=== PATIENT | female | born 1985 | race Two or more races ===

== ENCOUNTER 2018-11-08 07:30 | Inpatient (IN) | payer OTHER ==
[2018-11-08] MEDS ORDERED: OXYTOCIN 20 UNITS in 0.9% NS 20 UNIT/1,000 ML INFUS.BAG IV ONE (07:43)
[2018-11-08] MEDS ORDERED: AMPICILLIN SODIUM 2 GM VIAL ONE (07:46)
[2018-11-08] MEDS ORDERED: LIDOCAINE HCL 1% PRESERVATIVE FREE - 30ML VIAL ONE (07:50)
[2018-11-08] MEDS ORDERED: DEXTROSE 5%-LACTATED RINGERS 1,000 ML IV SCH (08:15)
[2018-11-08] MEDS ORDERED: AMPICILLIN - 2 GM in SODIUM CHLORIDE 100 ML IVPB ONE (08:15)
[2018-11-08] MEDS ORDERED: ACETAMINOPHEN INJECTION 100 ML IVPB ONE (08:16)
--- NOTE | 2018-11-08 08:32 | HP ---
Past Medical History - Primary Care Physician PCP:: Guillermo Henriquez - Admission Chief Complaint: 32yo P0 with at EGA 36wks came to L&D with second stage of labor and bleeding History of Present Illness: Pt presented with labor at 36wks. Reports painful ctx's and bleeding at 6:30am. Pt presented to L&D with cervical dilation 10cm and pushing. She was noted to have decels in heart rate. Delivered precipitously with signs of placental abruption. Fetus followed for increased risks of Down syndrome. She had a negative cfDNA screen. Suspected IUGR with decrease in growth to 5th %ile and increased S/D ratio of umbilical cord doppler. History Source: Patient, Medical Record Limitations to Obtaining History: No Limitations - Past Medical History PRESSER FIRST: No: Alzheimer's, CVA, Dementia, Migraine, Multiple Sclerosis, Peripheral Neuropathy, Parkinson's, Seizure, Syncope, TIA, Vertigo, Other Cardiovascular: No: AFIB, Aneurysm, Aortic Insufficiency, Aortic Stenosis, CAD, CHF, Deep Vein Thrombosis, HTN, Hyperlipdemia, [place], Mitral Insufficiency, Mitral Stenosis, Murmur, Pulmonary Hypertension, Other Pulmonary: No: Asthma, Bronchitis, Cancer, COPD, O2 Dependent, Pneumonia, Previously Intubated, Pulmonary Embolus, Pulmonary Fibrosis, Sleep Apnea, Other Gastrointestinal: No: Ascites, Cancer, Constipation, Crohn's Disease, Diverticulitis, Diverticulosis, Esophageal Varices, Gastritis, GERD, GI Bleed, Hemorrhoids, Hiatal Hernia, Inflamatory Bowel Disease, Irritable Bowel Disease, Pancreatitis, Peptic Ulcer Disease, Ulcerative Colitis, Other Hepatobiliary: No: Cirrhosis, Cholelithiasis, Cholecystitis, Choledocholithiasis , Hepatitis A, Hepatitis B, Hepatitis C, Other Renal/: No: Renal Failure, Renal Inusuff, BPH, Cancer, Hematuria, Hemodialysis , Neurogenic Bladder, Renal Calculi, UTI, Other Reproductive: No: Ectopic , Endometriosis, Fibroids, PID, Polycystic Ovary Syndrome, Postmenopausal, Other ...: 1 Heme/Onc: No: Anemia, B12 Deficiency, Bleeding Disorder, Cancer, Current Chemotherapy, Current Radiation Therapy, Hemochromatosis, Hypercoaguable State, Myeloproliferative Synd, Sickle Cell Disease, Sickle Cell Trait, Thrombocytopenia, Other Infectious Disease: No: AIDS, C-Diff, Herpes Zoster, HIV, MRSA, STD's, Tuberculosis, VREF, Other Psych: No: Addictions, Anxiety, Bipolar, Depression, Panic, Psychosis, Schizophrenia, Other Musculoskeletal: No: Bursitis, Chronic low back pain, Hemiparesis, Hemiplegia, Osteoarthritis, Paraplegia, Other Rheumatology: No: Fibromyalgia, Gout, Lupus, Rheumatoid Arthritis, Sarcoidosis, Vasculitis, Other ENT: No: Allergic Rhinitis, Sinusitis, Other Endocrine: No: Dallas's Disease, Radha's Disease, Diabetes Insipidus, Diabetes Mellitus, Hyperparathyroidism, Hyperthyroidism, Hypothyroidism, Osteopenia, SIADH, Other Dermatology: No: Basal Cell, Cellulitis, Eczema, Melanoma, Psoriasis, Squamous Cell, Other - Past Surgical History Past Surgical History: Yes: Appendectomy Hx Myomectomy: No Hx Transabdominal Cerclage: No - Smoking History Have you smoked in the past 12 months: No - Alcohol/Substance Use Hx Alcohol Use: No History of Substance Use: reports: None - Social History Usual Living Arrangement: Yes: With Spouse ADL: Independent Occupation: OR nurse History of Recent Travel: No Home Medications - Allergies Allergies/Adverse Reactions: Allergies Allergy/AdvReac Type Severity Reaction Status Date / Time No Known Allergies Allergy Verified 11/08/18 08:03 Family Disease History - Family Disease History Family History: Denies Review of Systems - Review of Systems Constitutional: reports: Other Eyes: reports: No Symptoms HENT: reports: No Symptoms Neck: reports: No Symptoms Cardiovascular: reports: No Symptoms Respiratory: reports: No Symptoms Gastrointestinal: reports: No Symptoms Genitourinary: reports: No Symptoms Breasts: reports: No Symptoms Reported Musculoskeletal: reports: No Symptoms (Pain and bleeding) Integumentary: reports: No Symptoms Neurological: reports: No Symptoms Endocrine: reports: No Symptoms Hematology/Lymphatic: reports: No Symptoms Psychiatric: reports: No Symptoms Pain Intensity: 10 Physical Exam - Maternity Constitutional: Yes: Well Nourished, Severe Distress Eyes: Yes: WNL, Conjunctiva Clear HENT: Yes: WNL, Atraumatic, Normocephalic Neck: Yes: WNL, Supple, Trachea Midline Cardiovascular: Yes: WNL, Regular Rate and Rhythm Lungs: Clear to auscultation, Normal air movement Breast(s): Yes: WNL - Abdominal Exam/OB Number of Fetuses: Single Presentation: Vertex Contractions: Yes - Vaginal Exam/OB Vaginal Bleediing: Yes, Heavy Dilatation (cm): 10 Amniotic Membrane Status: Leaking Amniotic Fluid: Yes: Blood Stained Presentation: Vertex/Position Station: +1 - Physical Exam Musculoskeletal: Yes: WNL Extremities: Yes: WNL Integumentary: Yes: WNL Deep Tendon Reflex Grade: Normal +2 ...Motor Strength: WNL Psychiatric: Yes: WNL, Alert, Oriented Hemorrhage Risk Assessment - Risk Factors Medium Risk Factors: Yes: None High Risk Factors: Yes: Active bleeding on admission Risk Score: 3 Risk Level: High Risk Imaging - Results Ultrasound: Image Reviewed Assessment/Plan 32yo P0 with at EGA 36wks came to L&D with second stage of labor and bleeding, decelerations in heart rate. Placental abruption was suspected Dr. Hameed responded to an emergency call as the only MD on site. Baby boy was delivered over midline episiotomy by Dr. Hameed. Blood clots were noted on delivery. I came in as the placenta was delivering about 4 minutes after the baby. Placenta delivered quickly after the baby, also with blood clots. The midline episiotomy was repaired. The dessert cup machine feeder present for delivery.
[2018-11-08] MEDS ORDERED: ELECTROLYTE-148 SOLN 1,000 ML IV SCH (09:00)
[2018-11-08] MEDS ORDERED: METHYLERGONOVINE MALEATE 0.2 MG/1 ML AMP IM PRN (09:01)
[2018-11-08] MEDS ORDERED: BENZOCAINE 28 GM HEMORRHOIDAL OINTMENT TP PRN (09:01)
[2018-11-08] MEDS ORDERED: BENZOCAINE 20% 57 GM BOTTLE TP PRN (09:01)
[2018-11-08] MEDS ORDERED: BISACODYL 10 MG SUPP.RECT RC PRN (09:01)
[2018-11-08] MEDS ORDERED: WITCH HAZEL 50% (TUCKS) 40 PAD/JAR PAD TP PRN (09:01)
[2018-11-08] MEDS ORDERED: OXYTOCIN 20 UNITS in 0.9% NS 20 UNIT/1,000 ML INFUS.BAG IV SCH (09:15)
[2018-11-08 09:26] VITALS: BMI 27.4
[2018-11-08] MEDS ORDERED: ACETAMINOPHEN 1000 MG/100 ML VIAL (NON FORMULARY) IVPB ONE (10:00)
[2018-11-08 10:31] LABS: BASO % 0.2 % (0-2.0); EOS % 0.2 % (0-4.5); HEMATOCRIT 41.5 % (32.4-45.2); HEMOGLOBIN 14.1 GM/dL (10.7-15.3); LYMPH % 6.8 % (8-40); MCH 32.9 pg (25.7-33.7); MEAN CELL VOLUME 96.8 fl (80-96); MEAN PLT VOLUME 9.3 fl (7.5-11.1); MONO % 10.6 % (3.8-10.2); NEUT % 82.2 % (42.8-82.8); PLATELET COUNT 191 K/MM3 (134-434); RBC 4.29 M/mm3 (3.60-5.2); RDW 13.1 % (11.6-15.6); WHITE BLOOD COUNT 14.7 K/mm3 (4.0-10.0)
[2018-11-08 10:48] LABS: INR 0.86 (0.83-1.09); PROTHROMBIN TIME (PATIENT) 10.1 SEC (9.7-13.0)
[2018-11-08 10:51] LABS: ACTIVATED PTT 28.1 SECONDS (25.2-36.5)
[2018-11-08 10:59] LABS: BLOOD UREA NITROGEN 8.6 mg/dL (7-18); CALCIUM 8.7 mg/dL (8.5-10.1); CREATININE 0.5 mg/dL (0.55-1.3); POTASSIUM 4.3 mmol/L (3.5-5.1)
[2018-11-08] MEDS: PRENATAL VITAMINS W/ FOLIC ACID TABLET (FP) PO SCH (11:20)
[2018-11-08] MEDS: AMPICILLIN - 1 GM in SODIUM CHLORIDE 100 ML IVPB SCH (12:28)
--- NOTE | 2018-11-08 14:59 | PN ---
Delivery - Delivery Vaginal Delivery: No Problems, Spontaneous Type of Anesthesia: Local Episiotomy/Laceration: Midline EBL (cc): 300 Delivery, Single - Stages of Labor Date 1st Stage Initiatied: 11/08/18 Time 1st Stage Initiated: 06:30 Date 2nd Stage Initiated: 11/08/18 Time 2nd Stage Initiated: 07:30 Date of Delivery: 11/08/18 Time of Delivery: 08:10 Date Placenta Delivered: 11/08/18 Time Placenta Delivered: 08:14 Placenta: Yes: Spontaneous, Normal Configuration - Condition of Infant Spot Welder/Raspberry Checker Present: Yes Name: Yudelka Ann Infant Gender: Male Weight: 2.07 kg Position: Left, OA Total Hours ROM (Hrs/Mins): 2 hours and 44 minutes - 1 Minute Total Score: 8 5 Minutes Total Score: 9 - [place] Feeding Plan Initial Plan: Exclusive throughout hospitalization Remarks - Remarks Remarks: Vaginal bleeding due to placental abruption. Delivery by Dr. Hameed who responded to emergency call.
[2018-11-08] MEDS: IBUPROFEN 600 MG TABLET (FP) PO PRN (17:47)
[2018-11-08] MEDS: ACETAMINOPHEN 325 MG TABLET (FP) PO PRN (17:48)
[2018-11-09] MEDS: AMPICILLIN - 1 GM in SODIUM CHLORIDE 100 ML IVPB SCH ×2 (01:53→06:35)
[2018-11-09 08:16] LABS: BASO % 0.5 % (0-2.0); EOS % 0.2 % (0-4.5); HEMATOCRIT 36.8 % (32.4-45.2); HEMOGLOBIN 12.5 GM/dL (10.7-15.3); LYMPH % 15.1 % (8-40); MCH 32.8 pg (25.7-33.7); MEAN CELL VOLUME 96.3 fl (80-96); MONO % 7.9 % (3.8-10.2); NEUT % 76.3 % (42.8-82.8); PLATELET COUNT 177 K/MM3 (134-434); RBC 3.82 M/mm3 (3.60-5.2); RDW 13.3 % (11.6-15.6); WHITE BLOOD COUNT 11.7 K/mm3 (4.0-10.0)
[2018-11-09] MEDS ORDERED: DIPHTH,PERTUSS(ACELL),TET 0.5 ML DISP.SYRIN IM ONE (10:00)
[2018-11-09] MEDS: ACETAMINOPHEN 325 MG TABLET (FP) PO PRN ×2 (11:29→21:58)
[2018-11-09] MEDS: PRENATAL VITAMINS W/ FOLIC ACID TABLET (FP) PO SCH (11:29)
[2018-11-09] MEDS: IBUPROFEN 600 MG TABLET (FP) PO PRN ×2 (11:30→21:58)
--- NOTE | 2018-11-09 11:47 | PN ---
Progress Note (short form) - Note Progress Note: 11/08/18 , 7.40 AM I responded to emergency stat call to L&D pt was fully dilated . vx +2/+3 station , bleeding nurse informed about large amount of bleeding on wheel chair chucks . uc were q1-3 min , fhr 120-125 ,down to 70 bpm during UC lasting 50-60 sec , recovering to base line , Cat -2 tracing fresh blood leaking periodically with puses was noted she had at 8.10 AM , vx presentation,cord around neck & body was untangled 8/9, baby boy . Delivery of the baby was accompanied by blood & clots Placenta & membranes were delivered completely. MEU, was done Impression was Abruptio placenta . Median Episiotomy was given , & sutured under local anesthesia with Chr catgut # 2/0 bladder was emptied with catheter 150 ml urine ravi color [place] Exam , mucosa & sphincter was intact EBL 300 ml approx v/s stable
--- NOTE | 2018-11-09 17:29 | PN ---
Post Progress Note - Subjective Subjective: Patient without acute complaints. Reports tolerating oral intake without nausea or vomiting. Ambulating without dizziness. Denies fevers or chills. Pain well controlled with oral pain medication. without difficulty. Passing flatus. Post Day: 1 Type of Delivery: Vital Signs: Vital Signs Temperature 97.8 F 11/09/18 10:00 Pulse Rate 86 11/09/18 10:00 Respiratory Rate 20 11/09/18 10:00 Blood Pressure 112/76 11/09/18 10:00 O2 Sat by Pulse Oximetry (%) 100 11/08/18 09:00 Breast Exam: Yes: Soft Uterus: Yes: Fundus Firm Abdomen/GI: Yes: Abdomen soft, Passing flatus, Tolerating PO. No: Abdominal Distention, Tender Lochia: Yes: Rubra Lochia, amount: Moderate Extremities: Yes: Calves non-tender, Edema (trace) Perineum: Yes: Episiotomy Activity: Ambulating - Labs Labs: CBC WBC 11.7 K/mm3 (4.0-10.0) H 11/09/18 07:15 RBC 3.82 M/mm3 (3.60-5.2) 11/09/18 07:15 Hgb 12.5 GM/dL (10.7-15.3) 11/09/18 07:15 Hct 36.8 % (32.4-45.2) 11/09/18 07:15 MCV 96.3 fl (80-96) H 11/09/18 07:15 MCH 32.8 pg (25.7-33.7) 11/09/18 07:15 MCHC 34.0 g/dl (32.0-36.0) 11/09/18 07:15 RDW 13.3 % (11.6-15.6) 11/09/18 07:15 Plt Count 177 K/MM3 (134-434) 11/09/18 07:15 MPV 9.0 fl (7.5-11.1) 11/09/18 07:15 Absolute Neuts (auto) 8.9 K/mm3 (1.5-8.0) H 11/09/18 07:15 Neutrophils % 76.3 % (42.8-82.8) 11/09/18 07:15 Lymphocytes % 15.1 % (8-40) D 11/09/18 07:15 Monocytes % 7.9 % (3.8-10.2) 11/09/18 07:15 Eosinophils % 0.2 % (0-4.5) 11/09/18 07:15 Basophils % 0.5 % (0-2.0) 11/09/18 07:15 Nucleated RBC % 0 % (0-0) 11/09/18 07:15 Assessment/Plan 32 yo PPD # 1 s/p , afebrile, vital signs stable, doing well 1. Continue routine care. 2. AM CBC without anemia 3. Rh positive status, no rhogam indicated. 4. Encourage ambulation 5. Continue oral pain medication 6. Anticipate discharge home day #2
[2018-11-09] MEDS ORDERED: SENNOSIDES/DOCUSATE COMBO (SENNA PLUS) TABLET (UD) PO PRN (22:00)
--- NOTE | 2018-11-10 08:56 | PN ---
Post Progress Note - Subjective Subjective: Pt is well, no complaints. Post Day: 2 Type of Delivery: Vital Signs: Vital Signs Temperature 98.5 F 11/09/18 20:13 Pulse Rate 90 11/09/18 20:13 Respiratory Rate 20 11/09/18 20:13 Blood Pressure 128/81 11/09/18 20:13 O2 Sat by Pulse Oximetry (%) 100 11/08/18 09:00 Breast Exam: Yes: Soft Uterus: Yes: Fundus Firm, Fundus below umbilicus, Non-tender Abdomen/GI: Yes: Abdomen soft, Passing flatus, Tolerating PO Lochia: Yes: Rubra Lochia, amount: Small Extremities: Yes: Calves non-tender Perineum: Yes: Episiotomy (intact repair) Activity: Ambulating - Labs Labs: CBC WBC 11.7 K/mm3 (4.0-10.0) H 11/09/18 07:15 RBC 3.82 M/mm3 (3.60-5.2) 11/09/18 07:15 Hgb 12.5 GM/dL (10.7-15.3) 11/09/18 07:15 Hct 36.8 % (32.4-45.2) 11/09/18 07:15 MCV 96.3 fl (80-96) H 11/09/18 07:15 MCH 32.8 pg (25.7-33.7) 11/09/18 07:15 MCHC 34.0 g/dl (32.0-36.0) 11/09/18 07:15 RDW 13.3 % (11.6-15.6) 11/09/18 07:15 Plt Count 177 K/MM3 (134-434) 11/09/18 07:15 MPV 9.0 fl (7.5-11.1) 11/09/18 07:15 Absolute Neuts (auto) 8.9 K/mm3 (1.5-8.0) H 11/09/18 07:15 Neutrophils % 76.3 % (42.8-82.8) 11/09/18 07:15 Lymphocytes % 15.1 % (8-40) D 11/09/18 07:15 Monocytes % 7.9 % (3.8-10.2) 11/09/18 07:15 Eosinophils % 0.2 % (0-4.5) 11/09/18 07:15 Basophils % 0.5 % (0-2.0) 11/09/18 07:15 Nucleated RBC % 0 % (0-0) 11/09/18 07:15 Assessment/Plan 32yo P0 doing well . Asymptomatic for anemia. care instructions reviewed. Continue routine care. Ambulation encouraged Discharge instruction reviewed.
--- NOTE | 2018-11-10 08:58 | DS ---
Physical Exam-MANAGER COMMODITIES Vital Signs: Vital Signs Temperature 98.5 F 11/09/18 20:13 Pulse Rate 90 11/09/18 20:13 Respiratory Rate 20 11/09/18 20:13 Blood Pressure 128/81 11/09/18 20:13 O2 Sat by Pulse Oximetry (%) 100 11/08/18 09:00 Constitutional: Yes: Well Nourished, No Distress, Calm Eyes: Yes: WNL, Conjunctiva Clear, EOM Intact HENT: Yes: WNL, Atraumatic, Normocephalic Neck: Yes: WNL, Supple, Trachea Midline Cardiovascular: Yes: WNL, Regular Rate and Rhythm Respiratory: Yes: WNL, Regular, CTA Bilaterally Gastrointestinal: Yes: WNL, Normal Bowel Sounds, Soft ...Rectal Exam: Yes: Deferred Renal/: Yes: WNL Pelvis: Yes: WNL ....Post : Yes: Uterus firm, Uterus non-tender, Slight lochia rubra Breast(s): Yes: WNL Musculoskeletal: Yes: WNL Extremities: Yes: WNL Edema: No Integumentary: Yes: WNL Neurological: Yes: WNL, Alert, Oriented ...Motor Strength: WNL Psychiatric: Yes: WNL, Alert, Oriented Labs: CBC, BMP 11/09/18 07:15 11/08/18 08:08 Delivery - Delivery Vaginal Delivery: No Problems, Spontaneous Type of Anesthesia: Local Episiotomy/Laceration: Midline EBL (cc): 300 Delivery, Single - Stages of Labor Date 1st Stage Initiatied: 11/08/18 Time 1st Stage Initiated: 06:30 Date 2nd Stage Initiated: 11/08/18 Time 2nd Stage Initiated: 07:30 Date of Delivery: 11/08/18 Time of Delivery: 08:10 Time Placenta Delivered: 08:14 Placenta: Yes: Spontaneous, Normal Configuration - Condition of Infant [employer] Banker/Fusion Operator Present: Yes Name: Yudelka Ann Gender: Male Weight: 2.07 kg Position: Left, OA Total Hours ROM (Hrs/Mins): 2 hours and 44 minutes - 1 Minute Total Score: 8 5 Minutes Total Score: 9 - [place] Feeding Plan Initial Plan: Exclusive throughout hospitalization Benefits of Exclusively reinforced: Yes Remarks - Remarks Remarks: Vaginal bleeding due to placental abruption. Delivery by Dr. Hameed who responded to emergency call. Discharge Summary Reason For Visit: LABOR labor at 36wks Palcental abruption Procedures: Principal: Other Procedures: Repair of episiotomy Hospital Course: Normal recovery Condition: Good - Instructions Diet, Activity, Other Instructions: regular diet, no intercourse , if pain, heavy vaginal bleeding, fever , call md , follow up office 4 weeks Referrals: Daniel Carmen MD [Staff Physician] - Disposition: HOME - Home Medications Comprehensive Discharge Medication List: Ambulatory Orders Tablet 1 tab PO DAILY 11/08/18 Ibuprofen [Motrin -] 600 mg PO QID #28 tablet 11/10/18
[2018-11-10] MEDS: PRENATAL VITAMINS W/ FOLIC ACID TABLET (FP) PO SCH ×2 (09:32→09:33)
[2018-11-10] MEDS: IBUPROFEN 600 MG TABLET (FP) PO PRN (09:32)
[2018-11-10] MEDS: ACETAMINOPHEN 325 MG TABLET (FP) PO PRN (09:33)
[2018-11-10 12:04] VITALS: BP 120/80; PULSE 95; TEMP 98
--- NOTE | 2018-11-13 12:00 | PATH ---
Surgical Pathology Report Patient Name: TIMOTHY SPEAR [facility]. Rec. #: [id number] /Age/Gender: 1985 (Age: 32) / F Account: [id number] Location: [facility] OBS/ASSEMBLY MANAGER Taken: 11/08/2018 Received: 11/09/2018 Reported: 11/13/2018 Physicians: Ann Hameed M.D. Specimen(s) Received PLACENTA Clinical History 36 weeks gestation, placental abruption, Lap appendectomy 2012 Final Diagnosis PLACENTA: THIRD TRIMESTER PLACENTA. TRIVASCULAR CORD. MEMBRANES WITH NO DIAGNOSTIC ABNORMALITIES. Comment: History of placental abruption noted. Electronically Signed Dayana Avelar M.D. Gross Description The specimen is received fresh labeled placenta and is a 384 gram, 14 x14 x 1.8cm. placenta with attached membranes and umbilical cord. The attached membranes are glistening, translucent, and insert marginally. The umbilical cord measures 15 cm. in length and averages 0.9 cm. in diameter. The cord inserts centrally, 6 centimeter to the nearest margin. No true knots or strictures are identified. Cut surface of the umbilical cord reveals 3 vessels. The maternal surface of the placenta shows scattered superficial disruption. Minimal blood is attached. Sectioning reveals red-brown, spongy parenchyma. No lesions are identified. No blood clot is seen in the container. Security Assessor sections are submitted in four cassettes as follows: 1- membrane rolls and umbilical cord; 2-3- full thickness sections of placenta 4. Disrupted area KWS/11/09/2018 sulki/11/09/2018
== END 2018-11-10 18:15 | disposition home or self-care (01) | DRG 805 ==
LOC: JLDR 07:30 → J3W 12:23
PROVIDERS: ADMIT Obstetrics & Gynecology; ATTEND Obstetrics & Gynecology
PROC: 10E0XZZ Delivery of Products of Conception, External Approach (ICD-10-PCS; principal; 2018-11-08)
PROC: 0W8NXZZ Division of Female Perineum, External Approach (ICD-10-PCS; 2018-11-08)
DX: O60.14X0 Preterm labor third trimester with preterm delivery third trimester, not applicable or unspecified (principal); O45.8X3 Other premature separation of placenta, third trimester; Z37.0 Single live birth; Z3A.36 36 weeks gestation of pregnancy
CPT/HCPCS: 36415; 36600; 59409; 80048; 82803; 85025; 85610; 85730; 86593; 86850; 86900; 86901; 87389; 88307-TC; 90715; J0131

== ENCOUNTER 2021-09-08 07:30 | Inpatient (IN) | payer OTHER ==
[2021-09-08] MEDS ORDERED: AMPICILLIN SODIUM 2 GM VIAL ONE (09:01)
[2021-09-08 09:20] LABS: INR 0.94 (0.83-1.09); PROTHROMBIN TIME (PATIENT) 10.8 SEC (9.7-13.0)
[2021-09-08 09:22] LABS: ACTIVATED PTT 27.7 SECONDS (25.2-36.5); BASO % 0.6 % (0-2.0); EOS % 0.8 % (0-4.5); HEMATOCRIT 33.8 % (32.4-45.2); HEMOGLOBIN 11.9 GM/dL (10.7-15.3); LYMPH % 16.8 % (8-40); MCH 31.8 pg (25.7-33.7); MCHC 35.1 g/dl (32.0-36.0); MEAN CELL VOLUME 90.5 fl (80-96); MEAN PLT VOLUME 8.5 fl (7.5-11.1); MONO % 9.7 % (3.8-10.2); NEUT % 72.1 % (42.8-82.8); PLATELET COUNT 245 10^3/uL (134-434); RBC 3.73 M/mm3 (3.60-5.2); RDW 14.4 % (11.6-15.6); WHITE BLOOD COUNT 8.6 K/mm3 (4.0-10.0)
[2021-09-08 09:41] LABS: BLOOD UREA NITROGEN 7.8 mg/dL (7-18); CALCIUM 8.7 mg/dL (8.5-10.1)
[2021-09-08] MEDS ORDERED: BUTORPHANOL TARTRATE 1 MG/ML VIAL IVPB ONE (09:42)
[2021-09-08] MEDS ORDERED: PROMETHAZINE HCL 25 MG/1 ML VIAL IVPUSH ONE (09:42)
[2021-09-08 09:45] LABS: CREATININE 0.4 mg/dL (0.55-1.3)
[2021-09-08] MEDS ORDERED: AMPICILLIN - 2 GM in SODIUM CHLORIDE 100 ML IVPB ONE (09:45)
[2021-09-08] MEDS ORDERED: ELECTROLYTE-148 SOLN 1,000 ML IV SCH (09:45)
[2021-09-08] MEDS ORDERED: OXYTOCIN 30 UNITS in 0.9% NS 30 UNIT/500 ML INFUS.BAG IVPB SCH (10:00)
[2021-09-08 10:07] VITALS: BMI 30.4
[2021-09-08] MEDS ORDERED: AMPICILLIN SODIUM 1 GM VIAL ONE (12:54)
[2021-09-08] MEDS: AMPICILLIN - 1 GM in SODIUM CHLORIDE 100 ML IVPB SCH ×2 (13:00→17:16)
[2021-09-08] MEDS ORDERED: LIDOCAINE HCL 1% PRESERVATIVE FREE - 30ML VIAL ONE (14:52)
[2021-09-08] MEDS ORDERED: OXYTOCIN 20 UNITS in 0.9% NS 20 UNIT/1,000 ML INFUS.BAG IV ONE ×2 (14:52→16:52)
[2021-09-08] MEDS ORDERED: IBUPROFEN 600 MG TABLET (FP) PO ONE (15:42)
[2021-09-08] MEDS: IBUPROFEN 600 MG TABLET (FP) PO PRN ×2 (15:45→19:58)
[2021-09-08] MEDS ORDERED: BENZOCAINE 28 GM HEMORRHOIDAL OINTMENT TP PRN (16:16)
[2021-09-08] MEDS ORDERED: BISACODYL 10 MG SUPP.RECT RC PRN (16:16)
[2021-09-08] MEDS ORDERED: BENZOCAINE 20% 57 GM BOTTLE TP PRN (16:16)
[2021-09-08] MEDS ORDERED: METHYLERGONOVINE MALEATE 0.2 MG/1 ML AMP IM PRN (16:16)
[2021-09-08] MEDS ORDERED: WITCH HAZEL 50% (TUCKS) 40 PAD/JAR PAD TP PRN (16:16)
[2021-09-08] MEDS ORDERED: ACETAMINOPHEN 325 MG TABLET (FP) PO PRN (16:16)
[2021-09-08] MEDS ORDERED: OXYTOCIN 20 UNITS in 0.9% NS 20 UNIT/1,000 ML INFUS.BAG IV SCH (16:30)
[2021-09-08 17:24] LABS: CORD BASE EXCESS -1.7 mmol/L (0-2); CORD HCO3 24.3 mmHg (20-29); CORD PCO2 45.8 mmHg (30-78); CORD pH 7.342 (7.14-7.44)
[2021-09-08 17:25] LABS: CORD HCO3 25.1 mmHg (20-29); CORD pH 7.346 (7.14-7.44)
[2021-09-08] MEDS ORDERED: MAGNESIUM CITRATE 300 ML BOTTLE PO ONE (20:07)
[2021-09-09 08:28] LABS: BASO % 0.4 % (0-2.0); EOS % 1.4 % (0-4.5); HEMOGLOBIN 11.9 GM/dL (10.7-15.3); LYMPH % 10.8 % (8-40); MCH 31.5 pg (25.7-33.7); MCHC 34.2 g/dl (32.0-36.0); MEAN CELL VOLUME 92.3 fl (80-96); MEAN PLT VOLUME 8.8 fl (7.5-11.1); MONO % 8.4 % (3.8-10.2); PLATELET COUNT 234 10^3/uL (134-434); RBC 3.79 M/mm3 (3.60-5.2); RDW 14.4 % (11.6-15.6); WHITE BLOOD COUNT 12.8 K/mm3 (4.0-10.0)
[2021-09-09] MEDS: IBUPROFEN 600 MG TABLET (FP) PO PRN ×2 (18:09→22:42)
[2021-09-09] MEDS ORDERED: SENNOSIDES/DOCUSATE COMBO (SENNA PLUS) TABLET (UD) PO PRN (22:00)
[2021-09-09 22:12] VITALS: TEMP 97.9
[2021-09-10 09:24] VITALS: BP 94/63; PULSE 96
== END 2021-09-10 16:10 | disposition home or self-care (01) | DRG 807 ==
LOC: JDEL 07:30 → JLDR 08:25 → J3W 17:54
PROVIDERS: ADMIT Obstetrics & Gynecology; ATTEND Obstetrics & Gynecology
PROC: 10E0XZZ Delivery of Products of Conception, External Approach (ICD-10-PCS; principal; 2021-09-08)
PROC: 0W8NXZZ Division of Female Perineum, External Approach (ICD-10-PCS; 2021-09-08)
DX: O60.14X0 Preterm labor third trimester with preterm delivery third trimester, not applicable or unspecified (principal); Z37.0 Single live birth; O70.1 Second degree perineal laceration during delivery; Z3A.36 36 weeks gestation of pregnancy
CPT/HCPCS: 36415; 36600; 59025; 59409; 80048; 82803; 85025; 85610; 85730; 86780; 86850; 86900; 86901; C9803-CS; U0003; U0005

== ENCOUNTER 2023-12-22 10:20 | Day surgery (SDC) | payer OTHER ==
[2023-12-21 16:44] VITALS: BMI 27.3
[~2023-12-22 10:20] MED LIST: ONDANSETRON 4 MG/2 ML VIAL IVPUSH PRN; PROMETHAZINE HCL 25 MG/1 ML VIAL IVPB PRN; oxyCODONE HCL 5 MG TABLET PO PRN
[2023-12-22] MEDS ORDERED: PROPOFOL 40 ML ONE (12:09)
[2023-12-22] MEDS ORDERED: LIDOCAINE HCL/PF 2% SDV 5ML VIAL ONE (12:10)
[2023-12-22] MEDS ORDERED: ONDANSETRON 4 MG/2 ML VIAL ONE (12:10)
[2023-12-22] MEDS ORDERED: KETOROLAC TROMETHAMINE 30 MG/1 ML VIAL ONE (12:10)
[2023-12-22] MEDS ORDERED: DEXAMETHASONE SOD PHOSPHATE 4 MG/1 ML VIAL ONE (12:12)
[2023-12-22] MEDS ORDERED: MIDAZOLAM HCL 2 MG/2 ML SINGLE DOSE VIAL ONE (12:13)
[2023-12-22] MEDS ORDERED: ONDANSETRON 4 MG/2 ML VIAL IVPUSH PRN (12:51)
[2023-12-22] MEDS ORDERED: oxyCODONE HCL 5 MG TABLET PO PRN (12:51)
[2023-12-22] MEDS ORDERED: IBUPROFEN 800 MG/8 ML IJ IVPB PRN (12:51)
[2023-12-22] MEDS ORDERED: IBUPROFEN 600 MG TABLET (FP) PO PRN (12:51)
[2023-12-22] MEDS ORDERED: ELECTROLYTE-148 SOLN 1,000 ML IV SCH (13:00)
[2023-12-22] MEDS: LACTATED RINGERS SOLUTION 1,000 ML IV SCH (13:00)
[2023-12-22 14:34] VITALS: RESP 16
[2023-12-22 14:56] VITALS: BP 102/65; PULSE 84; TEMP 98.2
== END 2023-12-22 14:40 | disposition home or self-care (01) ==
LOC: JASU-SURG 10:20
PROVIDERS: ATTEND Obstetrics & Gynecology
PROC: 0UDB7ZZ Extraction of Endometrium, Via Natural or Artificial Opening (ICD-10-PCS; principal; 2023-12-22 12:00)
DX: O02.1 Missed abortion (principal)
CPT/HCPCS: 81025; 88305-TC; 94760